=== PATIENT | female | born 1965 | race Caucasian/White ===

== ENCOUNTER 2017-03-13 20:27 | Emergency (ER) | payer OTHER ==
[2017-03-13 20:57] LABS: APPEARANCE CLOUDY (CLEAR); BACTERIA MANY /hpf (NONE SEEN); BILIRUBIN NEGATIVE (NEGATIVE); COLOR YELLOW (YELLOW); GLUCOSE NEGATIVE (NEGATIVE); KETONE NEGATIVE (NEGATIVE); MUCUS <1+ /lpf (NONE SEEN); NITRITE POSITIVE (NEGATIVE); PROTEIN NEGATIVE (NEGATIVE); RED CELLS - URINE 0-5 /hpf (0-5); UROBILINOGEN NORMAL (NORMAL); WHITE CELLS - URINE 25-50 /hpf (0-5)
[2017-03-16 07:25] LABS: CHLAMYDIA TRACHOMATIS, NAA Negative (Negative)
== END 2017-03-13 23:10 | disposition home or self-care (01) ==
LOC: D.ER 20:27
PROVIDERS: Emergency Medicine; Physician Assistant
DX: R30.0 Dysuria (principal); N10 Acute pyelonephritis; A59.9 Trichomoniasis, unspecified; F17.200 Nicotine dependence, unspecified, uncomplicated

== ENCOUNTER 2017-05-06 17:06 | Emergency (ER) | payer MEDICAID | END 2017-05-06 20:22 | disposition home or self-care (01) | LOC: D.ER 17:06 | DX: S76.011A Strain of muscle, fascia and tendon of right hip, initial encounter (principal); W22.8XXA Striking against or struck by other objects, initial encounter; Y93.89 Activity, other specified; Y92.89 Other specified places as the place of occurrence of the external cause ==

== ENCOUNTER 2017-06-10 18:23 | Emergency (ER) | payer MEDICAID | END 2017-06-10 19:20 | disposition home or self-care (01) | LOC: D.ER 18:23 | DX: S76.012A Strain of muscle, fascia and tendon of left hip, initial encounter (principal); X58.XXXA Exposure to other specified factors, initial encounter; Y93.89 Activity, other specified; Y92.89 Other specified places as the place of occurrence of the external cause; J45.909 Unspecified asthma, uncomplicated ==